=== PATIENT | female | born 1965 | race Two or more races ===

== ENCOUNTER 2023-08-28 10:59 | Emergency (ER) | payer OTHER ==
[2023-08-28 11:08] VITALS: BMI 45.3
[2023-08-28] MEDS ORDERED: ACETAMINOPHEN INJECTION 100 ML IVPB ONE (12:41)
[2023-08-28] MEDS: ACETAMINOPHEN 1000 MG/100 ML BAG IVPB ONE (12:57)
[2023-08-28 13:10] LABS: BASO % 0.8 % (0-2.0); EOS % 4.7 % (0-4.5); HEMATOCRIT 41.3 % (32.4-45.2); HEMOGLOBIN 14.1 GM/dL (10.7-15.3); LYMPH % 32.9 % (8-40); MCH 29.8 pg (25.7-33.7); MCHC 34.2 g/dl (32.0-36.0); MEAN CELL VOLUME 87.2 fl (80-96); MEAN PLT VOLUME 8.2 fl (7.5-11.1); MONO % 7.1 % (3.8-10.2); NEUT % 54.5 % (42.8-82.8); PLATELET COUNT 242 10^3/uL (134-434); RBC 4.73 M/mm3 (3.60-5.2); RDW 14.4 % (11.6-15.6); WHITE BLOOD COUNT 6.8 K/mm3 (4.0-10.0)
[2023-08-28 13:17] LABS: URINE APPEARANCE CLEAR; URINE BILIRUBIN NEGATIVE (NEGATIVE); URINE COLOR YELLOW; URINE GLUCOSE (UA) 3+ (NEGATIVE); URINE KETONE NEGATIVE (NEGATIVE); URINE LEUK ESTERASE NEGATIVE (NEGATIVE); URINE NITRITE NEGATIVE (NEGATIVE); URINE PROTEIN NEGATIVE (NEGATIVE); URINE UROBILINOGEN 0.2 mg/dL (0.2-1.0)
[2023-08-28 13:33] LABS: ACTIVATED PTT 34.3 SECONDS (25.2-36.5); INR 1.05 (0.83-1.09); POTASSIUM 4.2 mmol/L (3.5-5.1); PROTHROMBIN TIME (PATIENT) 12.2 SEC (9.7-13.0)
[2023-08-28 13:35] LABS: CALCIUM 9.5 mg/dL (8.5-10.1)
[2023-08-28 13:36] LABS: ALBUMIN 3.5 g/dl (3.4-5.0)
[2023-08-28 13:39] LABS: CREATININE 0.6 mg/dL (0.55-1.3)
[2023-08-28 13:40] LABS: BILIRUBIN,TOTAL 0.5 mg/dL (0.2-1); TOT PROT 7.4 g/dl (6.4-8.2)
[2023-08-28 15:35] VITALS: BP 123/69; PULSE 55; RESP 20; TEMP 98.1
== END 2023-08-28 15:37 | disposition home or self-care (01) ==
LOC: JER 10:59
PROC: 3E033NZ Introduction of Analgesics, Hypnotics, Sedatives into Peripheral Vein, Percutaneous Approach (ICD-10-PCS; principal; 2023-08-28)
DX: R10.11 Right upper quadrant pain (principal); R51.9 Headache, unspecified; K46.9 Unspecified abdominal hernia without obstruction or gangrene
CPT/HCPCS: 36415; 74177-TC; 80053; 81003; 85025; 85610; 85730; 86850; 86900; 86901; 87086; 87186; 99285-25; J0131; Q9967